=== PATIENT | female | born 1970 | race African-American/Black ===

== ENCOUNTER 2017-01-02 11:06 | Inpatient (IN) | payer OTHER ==
--- NOTE | ~2017-01-02 | CT2 ---
[facility] A Service of [facility] RADIOLOGY TEXT RESULTS PATIENT: ULISES CURRY LOCATION: C2A : [birth year] UNIT #: [id number] AGE: [address]: Rivas Estrada MD SEX: F ORDER DR: [id number] [facility] [address] [facility]. [place], [place] [address] [id number] MR#: [id number] Acc #: [id number] NAME: ULISES CURRY. : 1970 SEX: F STUDY DATE/TIME: 01/02/2017 12:27 UNIT: AGNIESZKA ROOM: STUDY DESCRIPTION: CT Abd and Pelv W Cont Attending Physician: Oleg Srinivasan M.D. Ordering Physician: Oleg Srinivaasn M.D. Primary Care Physician: Dilia Deleon M.D. MEDICAL IMAGING REPORT This report is preliminary unless electronic signature is present EXAM CT abdomen and pelvis with contrast DATE OF EXAMINATION 01/02/2017 HISTORY Central abdominal pain since 01/01/2017. COMPARISON None. PROCEDURE 5 mL axial images from the lung bases through the lesser trochanters after intravenous and enteric contrast administration. Sagittal and coronal reformatted images were obtained. This CT exam was performed with one or more of the following radiation dose reduction techniques: automatic exposure control, adjustment of mA and/or kV according to patient size, and iterative reconstruction. FINDINGS The study is significantly limited secondary to attenuation by the patient's body habitus. ABDOMEN: A 6.8 x 5.2 x 9.4 cm umbilical hernia contains a segment of small bowel with adjacent herniated fat reticulation suggesting inflammatory change. Small bowel upstream to this appears mildly focalized, with small amount air fluid distension, as well, suggesting a partial small bowel obstruction. Lung bases are clear. Cholecystectomy changes are present. Liver, spleen, pancreas, adrenals and right kidney are within normal limits. 1.5 [facility] A Service of [facility] RADIOLOGY TEXT RESULTS PATIENT: ULISES CURRY LOCATION: C2A : [birth year] UNIT #: [id number] AGE: [address]: Rivas Estrada MD SEX: F ORDER DR: cm low-density lesion in the left mid kidney is nonspecific. Benign cyst is favored. No free air, free fluid or pneumatosis is seen. PELVIS: Heterogeneous nodular enlargement of the uterine fundus, favored to represent a large uterine fibroid, but correlation with pelvic ultrasound would be recommended for verification. It measures 10.2 x 9.9 x 10.5 cm. No pelvic free fluid. Urinary bladder is decompressed. Rectum is within normal limits. Small bilateral calcified pelvic phleboliths. Degenerative changes of the bilateral sacroiliac joints. No acute osseous abnormalities are identified. IMPRESSION 1. Umbilical hernia contains a segment of small bowel. There is some fat reticulation within the hernia sac suggesting active inflammation. Additionally, there is a partial air-fluid distension and fecalization of upstream small bowel suggesting the presence of partial small bowel obstruction. 2. 10.2 x 10.5 x 9.9 cm rounded nodular soft tissue thickening of the uterine body, nonspecific may represent a uterine fibroid. Consider correlation with pelvic ultrasound on a nonemergent basis for verification. 3. Nonspecific low-density lesion left mid kidney measuring 1 4. 1.5 cm, favored to represent a cyst. 5. Cholecystectomy. 6. Size limited examination. Dictated by... Elsa Clark M.D. THIS IS AN ELECTRONICALLY VERIFIED REPORT Elsa Clark M.D. at 01/03/2017 8:34 AM Rene TD: 01/02/2017 15:14 JOB #: [id number] MEDICAL IMAGING REPORT Page 1 of 1 COPY
--- NOTE | ~2017-01-02 | BMI ---
[facility] Nutrition Therapy DATE: 01/03/17 Patient: ULISES CURRY Physician: KENTRELL Address: [address] [place] [address] Room/Bed: [address] [place] [address], Zip: [place] [address] Admit Date: 01/02/17 Date of : [birth year] Height: 5 2 Weight: 428 194.5 HIGH BMI NOTE: DX: 46 y/o female admitted with ventral hernia ANTHROPOMETRICS: Ht: 62", Wt: 194.5 kg, BMI: 78 (Stage III obese) DIET: NPO for ventral hernia repair INTERVENTION: Restricted diet, meds/fluids per MD RECOMMENDATIONS: Once medically feasible advance to healthy heart/consistent carb diet due to history of diabetes and morbid obesity to promote a gradual weight loss towards a healthy BMI range. Respectfully, Naima Kelly RD, LD Food and Nutritional Services [facility] cc: client file
--- NOTE | ~2017-01-02 | EKG ---
PATIENT: ULISES CURRY UNIT #: [id number] Ventricular Rate: 79 BPM Atrial Rate: 79 BPM P-R Interval: 184 ms QRS Duration: 80 ms Q-T Interval: 388 ms QTC Calculation(Bezet): 444 ms P [place]: 64 degrees Calculated R [place]: 27 degrees Calculated T [place]: 9 degrees Diagnosis Line: Normal sinus rhythm Diagnosis Line: Nonspecific T wave abnormality Diagnosis Line: Abnormal ECG Diagnosis Line: When compared with ECG of 08-AUG-2016 13:11, Diagnosis Line: Nonspecific T wave abnormality now evident in Diagnosis Line: Inferior leads Diagnosis Line: Nonspecific T wave abnormality, worse in Anterior Diagnosis Line: leads Diagnosis Line: Confirmed by ANGELES LAWS MD ([id number]) on 01/02/2017 Diagnosis Line: 11:08:07 PM INTERPRETING MD: EUSEBIA PEREZ
--- NOTE | ~2017-01-02 | OR ---
Unit #: [id number] #: [id number] Patient: ULISES CURRY [id number] [address] [place] [id number] MR#: [id number] NAME: ULISES CURRY. ROOM: 220 Date of Procedure: 01/03/2017 Admission Date: 01/02/2017 Surgeon: Morales Peres Jr., M.D. : 1970 Attending Physician: Rivas Estrada M.D. Primary Care Physician: Dilia Deleon M.D. OPERATIVE REPORT INDICATIONS FOR PROCEDURE The patient is a 46-year-old morbidly obese black female, who was admitted with nausea, vomiting, and evidence of small-bowel obstruction secondary to incarcerated ventral hernia. She has had a known ventral hernia for some time, but no symptoms of obstruction until now. CT scan revealed some evidence of inflammatory changes with the loops of small bowel, but no obvious strangulation. Physical examination on admission reveals some tenderness, but not an acute abdomen. The patient is brought to the operating room at this time for possible laparoscopic reduction and repair of her ventral hernia versus open. PREOPERATIVE DIAGNOSES Incarcerated ventral incisional hernia with partial small bowel obstruction. POSTOPERATIVE DIAGNOSES Incarcerated ventral incisional hernia with partial small bowel obstruction, noting a loop of small bowel along with some omentum stuck up in an umbilical hernia area. The defect was approximately 4 to 5 cm in diameter. No evidence of any strangulation. ANESTHESIA General with endotracheal intubation and 0.5% Marcaine with epinephrine locally. 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 PROCEDURES PERFORMED Laparoscopic reduction and repair of incarcerated ventral hernia using a 6-inch echo mesh. DESCRIPTION OF PROCEDURE The patient was positioned in the supine position. After being anesthetized and intubated, she was prepped and draped in routine fashion for laparoscopic ventral hernia repair. A small 0.5 cm incision was made in the left lateral abdominal wall area and a 5-mm Optiview was introduced into the abdomen. The abdomen was then inflated with CO2 gas. Camera was introduced in the abdomen. There was no evidence of any injury related to the Optiview introduction. Brief intra-abdominal exploration was carried out. The patient was noted to have an incarcerated ventral hernia in the area of the umbilicus with loop of bowel within it as well as omentum. An Unit #: [id number] #: [id number] Patient: ULISES CURRY 11-mm port was placed in the left lateral abdominal wall area inferior to the first port and a 5-mm port was placed in the right upper quadrant abdominal wall area as well as in the right lower quadrant abdominal wall area. The omentum was then reduced from the hernia with some traction and using the Endo Brooke and the loop of bowel fell out of the hernia without difficulty. There was no evidence of any ischemia of the bowel. Some additional fragments of tissue along with the hernia sac were then removed and after hemostasis was achieved, a 6-inch echo graft was soaked and placed intra-abdominally and brought up against the anterior abdominal wall and tacked in place with SecureStrap. The balloon portion was removed. There was excellent coverage of the hernia with excellent securing of the mesh. After hemostasis was noted, the fascia in the larger port site in the left lower quadrant was then approximated with the neoClose technique and the fascia in the larger port site on the left lower quadrant abdominal wall area was approximated with a [id number] 0 Vicryl suture. The wounds were irrigated. CO2 was expressed from the abdomen. The ports were removed. There was no evidence of any bleeding from the port sites. The port sites were injected with 0.5% Marcaine with epinephrine locally. After hemostasis was noted, the skin edges on all the wounds were approximated with stainless-steel skin clips and skin stapling device. Sterile dressings were applied externally. Estimated blood loss less than 50 mL. The patient received less than 2000 mL crystalloid solution during the procedure. Sponges and instruments counts were correct x3. No drains used. No complications. The patient was taken to the recovery room with stable vital signs in satisfactory condition. Dictated by... Morales Peres Jr., M.D. JMB/dago TD: 01/04/2017 03:45 JOB #: [id number] OPERATIVE REPORT Page 1 of 1 X Morales Peres MD X PROCEDURE OPERATIVE NOTE
--- NOTE | ~2017-01-02 | DS ---
Unit #: [id number] #: [id number] Patient: ULISES CURRY [id number] [address] [place], [place] [address] [id number] I MR#: [id number] NAME: ULISES CURRY ROOM: 220 Age: 46 Sex: F Admission Date: 01/02/2017 : 1970 Discharge Date: 01/04/2017 Attending Physician: Rivas Estrada M.D. Primary Care Physician: Dilia Deleon M.D. DISCHARGE SUMMARY DISCHARGE DIAGNOSIS Incarcerated right upper quadrant incisional hernia. OPERATIVE PROCEDURE Repair of incarcerated incisional hernia with laparoscopic approach. DISCHARGE MEDICATIONS Home medications plus Percocet 7.5 mg 1 p.o. q.4 hours p.r.n. pain. HISTORY OF PRESENT ILLNESS AND HOSPITAL COURSE This is a 46-year-old obese black female, diabetic, who had previous cholecystectomy. She presented with, what appeared to be, an incarcerated ventral hernia. This was partially reduced. She did appear to have a partial bowel obstruction. She was taken to surgery after adequate preoperative evaluation. At that time right upper quadrant incisional hernia was noted to be present. This was reduced without difficulty. Laparoscopic repair was performed, again without difficulty. The patient tolerated the procedure well. Presently, the patient is doing well. She is on her first postoperative day. She is up out of bed, tolerating a diet. She is ready to be discharged and come back to see us in the office for followup evaluation in 5 days. She is to do no heavy lifting or strenuous activity. She may resume ambulation. Dictated by... Natalee Yousif/pily TD: 01/05/2017 15:24 JOB #: [id number] DISCHARGE SUMMARY Page 1 of 1 X Julio C Belle MD X DISCHARGE SUMMARY
--- NOTE | ~2017-01-02 | CO ---
Unit #: [id number] #: [id number] Patient: ULISES MENA [id number] [address] [place], [place] [address] [id number] I MR#: [id number] NAME: ULISES MENA. ROOM: 95517 Age: 46 Sex: F Admission Date: 01/02/2017 : 1970 Attending Physician: Tristan Estrada M.D. Primary Care Physician: Dilia Deleon M.D. Consultation Date: 01/02/2017 CONSULTATION REPORT HISTORY OF PRESENT ILLNESS Miss Mena is a 46-year-old female who presented to the emergency room with complaints of nausea, periumbilical pain, and an episode of nonbloody emesis. In the emergency room, a CT scan was obtained and was consistent with a partial small bowel obstruction secondary to incarceration of an umbilical hernia. She denied any fever, chills, night sweats, hematemesis, hematochezia, or melena. She has been passing flatus today. Patient has had a laparoscopic cholecystectomy done in July 2016, and she has an incision just above the umbilicus. This may be an incarcerated incisional hernia. PAST MEDICAL HISTORY 1. Hypertension. 2. Diabetes. 3. Morbid obesity. 4. Obstructive sleep apnea but is not on CPAP. 5. Pulmonary embolism in the past but is not currently anticoagulated. ALLERGIES PENICILLIN. HOME MEDICATIONS 1. Diovan 320 mg daily. 2. Coreg 6.25 mg p.o. daily. 3. Glipizide 5 mg p.o. daily. 4. Hydrochlorothiazide 25 mg p.o. daily. FAMILY HISTORY Diabetes. SOCIAL HISTORY Denies the use of tobacco. Social alcohol drinker. REVIEW OF SYSTEMS As above. PHYSICAL EXAMINATION VITAL SIGNS: Temperature is 99.1, pulse 78 and regular, respirations 16, and blood pressure 151/81. GENERAL: Awake, alert, and oriented, and does not appear to be in any acute distress. She says she is currently not nauseous and has been able to drink the contrast for the CT without any nausea or vomiting. In the ER, she has passed flatus. HEENT: No carotid bruits. Unit #: [id number] #: [id number] Patient: ULISES MENA CARDIAC: Regular rate and rhythm. LUNGS: Clear. ABDOMEN: She has a palpable hernia defect at the base of the umbilicus. It is partially reducible but not completely. It is nontender. There is no erythema and no evidence of strangulation. NEUROLOGICALLY: Grossly intact. EXTREMITIES: No clubbing, cyanosis, or edema. DIAGNOSTIC STUDIES LABORATORY: Comprehensive metabolic panel and lipase are normal. Hemoglobin 10.6, white count 6300, and platelets 295,000. Urinalysis negative for infection. IMAGING: CT scan as discussed. ASSESSMENT AND PLAN A 46-year-old female with a partial small bowel obstruction secondary to a periumbilical incisional hernia. We discussed doing a diagnostic laparoscopy and laparoscopic ventral hernia repair including risks, benefits, complications, and postoperative expectations. We also discussed the possibility of conversion to an open procedure if it is technically unsafe to do it laparoscopically. Patient's questions were answered and she understands. We will admit her to the hospital for hydration and schedule surgery as the schedule permits. Dictated by... Natalee Nixon/ashok TD: 01/02/2017 16:36 JOB #: [id number] CONSULTATION REPORT Page 1 of 1 X Rivas Estrada MD X CONSULTATION REPORT
[2017-01-02 10:18] LABS: BASOPHIL# 0.1 X10e3 (0-0.3); BASOPHIL% 0.9 % (0-2.5); EOSINOPHIL# 0.1 X10e3 (0-0.7); EOSINOPHIL% 1.3 % (0.0-7.0); HEMATOCRIT 34.3 % (35.0-45.0); HEMOGLOBIN 10.6 gm/dL (12.0-16.0); LYMPHOCYTE# 1.1 X10e3 (1.0-3.5); LYMPHOCYTE% 16.6 % (17.0-45.0); MEAN CELL VOLUME 84.3 FL (83-96); MEAN CORPUSCULAR HEMOGLOBIN 26.2 PG (28-34); MEAN PLATELET VOLUME 7.9 FL (6.5-11.5); MONOCYTE# 0.3 X10e3 (0-1.0); MONOCYTE% 5.4 % (3.0-12.0); NEUTROPHIL# 4.8 X10e3 (1.5-7.1); NEUTROPHIL% 75.8 % (40-75); PLATELET COUNT 295 X10e3 (140-420); RED BLOOD COUNT 4.07 X10e (3.90-5.30); RED CELL DISTRIBUTION WIDTH 18.6 % (11.0-15.5); WHITE BLOOD COUNT 6.3 X10e3 (4.0-10.5)
[2017-01-02 10:19] LABS: DIFF IND NO
[2017-01-02 10:55] LABS: BILIRUBIN, DIRECT 0.1 mg/dL (0.0-0.2); BILIRUBIN,INDIRECT 0.7 mg/dL (0.0-0.9); BILIRUBIN,TOTAL 0.8 mg/dL (0.2-2.0); BUN/CREATININE RATIO 14.28; CALCIUM SERUM 9.6 mg/dL (8.4-10.2); CREATININE SERUM 0.7 mg/dL (0.6-1.4); GLOM FILT RATE Estimated 119.6 mL/min (>60); POTASSIUM 4.1 mmol/L (3.5-5.1); PROTEIN TOTAL SERUM 8.3 g/dL (6.0-8.3)
[2017-01-02 11:01] LABS: URINE SOURCE CLEAN CATCH
[~2017-01-02 11:06] MED LIST: ADVAIR 2501 DISK W/D PO; ADVIL200 M1; ALBUTEROL17 GM INH; AVANDAMET 4 MG/1 TAB PO; COREG PO; COREG6.25 M1; COUMADIN PO; DIOVAN HCT 160-1 TAB PO; DIOVAN HCT 320/1 TA2 PO; DIOVAN320 MG PO; FLEXERIL PO; GLUCOTROL PO; HYDROCHLOROTHIA25 MG PO; HYDROCODON-ACE1 EAC9 PO; IBUPROFEN PO; K-DUR20 ME2 PO; LASIX PO; LODINE PO; LORTAB 7.5-5001 TAB PO; MEDROL PO; PEN-VEE K PO; PHENERGAN25 M1 PO; YASMIN 28 TABLE1 TAB PO; ZITHROMAX PO
[2017-01-02 11:08] LABS: URINE APPEARANCE CLEAR; URINE BILIRUBIN NEG (NEG); URINE BLOOD NEG (NEG); URINE COLOR YELLOW; URINE GLUCOSE NEG (NEG); URINE KETONE 1+ (NEG); URINE LEUKOCYTE ESTERASE NEG (NEG); URINE NITRATE NEG (NEG); URINE PROTEIN NEG (NEG); URINE SPECIFIC GRAVITY 1.015 (1.003-1.035); URINE UROBILINOGEN 0.2 MG/DL (NEG)
[2017-01-02 11:21] LABS: CULTURE INDICATED? NO
[2017-01-02] MEDS ORDERED: COREG12.5 M1 PO (14:45)
[2017-01-02] MEDS ORDERED: DIOVAN320 MG PO (14:45)
[2017-01-02] MEDS ORDERED: HYDROCHLOROTHIA25 MG PO (14:46)
[2017-01-02] MEDS ORDERED: GLIPIZIDE XL5 MG PO (14:46)
[2017-01-03 07:47] LABS: HEMATOCRIT 33.4 % (35.0-45.0); HEMOGLOBIN 10.2 gm/dL (12.0-16.0); MEAN CELL VOLUME 85.8 FL (83-96); MEAN CORPUSCULAR HEMOGLOBIN 26.2 PG (28-34); MEAN CORPUSCULAR HGB CONC 30.6 g/dL (30-36); MEAN PLATELET VOLUME 8.4 FL (6.5-11.5); RED BLOOD COUNT 3.9 X10e (3.90-5.30); RED CELL DISTRIBUTION WIDTH 18.5 % (11.0-15.5); WHITE BLOOD COUNT 7.9 X10e3 (4.0-10.5)
[2017-01-03 08:19] LABS: BUN/CREATININE RATIO 21.42; CALCIUM SERUM 9.3 mg/dL (8.4-10.2); CREATININE SERUM 0.7 mg/dL (0.6-1.4); GLOM FILT RATE Estimated 119.6 mL/min (>60); MAGNESIUM 1.9 mg/dL (1.6-3.0); PHOSPHOROUS 4.6 mg/dL (2.5-4.6); POTASSIUM 4.2 mmol/L (3.5-5.1)
[2017-01-04 07:12] LABS: HEMATOCRIT 30.1 % (35.0-45.0); HEMOGLOBIN 9.1 gm/dL (12.0-16.0); MEAN CORPUSCULAR HEMOGLOBIN 26.4 PG (28-34); MEAN CORPUSCULAR HGB CONC 30.4 g/dL (30-36); MEAN PLATELET VOLUME 8.3 FL (6.5-11.5); RED BLOOD COUNT 3.45 X10e (3.90-5.30); WHITE BLOOD COUNT 6.4 X10e3 (4.0-10.5)
[2017-01-04] MEDS ORDERED: PERCOCET7.5 PO (10:58)
== END 2017-01-04 18:59 | disposition home or self-care (01) | DRG 354 ==
LOC: CED 11:06 → CEDOF 14:50 → C2A 20:10
PROVIDERS: Obstetrics & Gynecology; Surgery
PROC: 0WUF4JZ Supplement Abdominal Wall with Synthetic Substitute, Percutaneous Endoscopic Approach (ICD-10-PCS; principal; 2017-01-02)
DX: K43.0 Incisional hernia with obstruction, without gangrene (principal); Z68.45 Body mass index [BMI] 70 or greater, adult; I10 Essential (primary) hypertension; Z88.0 Allergy status to penicillin; E66.01 Morbid (severe) obesity due to excess calories; E11.9 Type 2 diabetes mellitus without complications; G47.33 Obstructive sleep apnea (adult) (pediatric); Z86.711 Personal history of pulmonary embolism; Z79.84 Long term (current) use of oral hypoglycemic drugs
CPT/HCPCS: 36415; 74177; 80048; 80076; 81003; 82947; 83690; 83735; 84100; 84703; 85025; 85027; 86677; 93005; 94010; 94760; 96361; 96374; 96375; 99291; C9113; J0330; J1170; J1650; J1885; J2270; J2405; J3010; J3370; Q9967